=== PATIENT | male | born 1990 | race Caucasian/White ===

== ENCOUNTER 2018-06-21 07:13 | Emergency (ER) | payer MEDICAID, OTHER ==
[2018-06-21] MEDS ORDERED: ONDANSETRON 4 MG/2 ML VIAL ONE (07:39)
[2018-06-21] MEDS ORDERED: HYDROmorphONE/DILAUDID 1 MG/ML INJ ONE (07:39)
[2018-06-21] MEDS ORDERED: NS 1,000 ML IV ONE ×2 (07:41→07:50)
[2018-06-21] MEDS ORDERED: ONDANSETRON 4 MG/2 ML VIAL IVP ONE (07:41)
[2018-06-21] MEDS ORDERED: HYDROmorphONE/DILAUDID 1 MG/ML INJ IVP ONE (07:41)
[2018-06-21] MEDS ORDERED: KETOROLAC 30 MG/1 ML SDV IVP ONE (07:50)
[2018-06-21 07:51] LABS: PLATELET COUNT 374 10^3/uL (150-400)
--- NOTE | 2018-06-21 07:55 | EDPHY ---
H & P Stated Complaint: rlq abd pain radiates into groin started this morning Time Seen by Provider: 06/21/18 07:45 HPI/ROS: CHIEF COMPLAINT: Right inguinal pain radiating to testicles and hematuria HISTORY OF PRESENT ILLNESS: Patient is a 27-year-old man who woke up with severe sharp right inguinal pain radiating to his testicles. Also hematuria. No back pain. No fever. [place] well yesterday. This happened to him once before while he was driving to [place] but it seemed to resolve spontaneously and he did not get worked up. He states that 2 of his uncles have had kidney stones in the past. He also began vomiting this morning. He denies risk for STD. Severity: Severe but fluctuating Modifying factors: Spontaneously fluctuates REVIEW OF SYSTEMS: Constitutional: denies: chills, fever, recent illness, recent injury EENTM: denies: blurred vision, double vision, nose congestion Respiratory: denies: cough, shortness of breath Cardiac: denies: chest pain, irregular heart rate, lightheadedness, palpitations Gastrointestinal/Abdominal: denies: abdominal pain, diarrhea, nausea, vomiting, blood streaked stools Genitourinary: See HPI Musculoskeletal: denies: joint pain, muscle pain Skin: denies: lesions, rash, jaundice, bruising Neurological: denies: headache, numbness, paresthesia, tingling, dizziness, weakness Hematologic/Lymphatic: denies: blood clots, easy bleeding, easy bruising Immunologic/allergic: denies: HIV/AIDS, transplant 10 systems reviewed and negative except as noted EXAM: GENERAL: Diaphoretic, acute distress HEAD: Atraumatic, normocephalic. EYES: Pupils equal round and reactive to light, extraocular movements intact, sclera anicteric, conjunctiva are normal. ENT: TMs normal, nares patent, oropharynx clear without exudates. Moist mucous membranes. NECK: Normal range of motion, supple without lymphadenopathy or JVD. LUNGS: Breath sounds clear to auscultation bilaterally and equal. No wheezes rales or rhonchi. HEART: Regular rate and rhythm without murmurs, rubs or gallops. ABDOMEN: Soft, nontender, normoactive bowel sounds. No guarding, no rebound. No masses appreciated. : No testicular tenderness or swelling. No urethral discharge. BACK: No CVA tenderness, no spinal tenderness, step-offs or deformities EXTREMITIES: Normal range of motion, no pitting or edema. No clubbing or cyanosis. NEUROLOGICAL: Cranial nerves II through XII grossly intact. Normal speech, normal gait. 5/5 strength, normal movement in all extremities, normal sensation , normal reflexes PSYCH: Normal mood, normal affect. SKIN: Warm, dry, normal turgor, no visible rashes or lesions. Source: Patient Exam Limitations: No limitations - Personal History Current Tetanus Diphtheria and Acellular Pertussis (TDAP): Yes - Medical/Surgical History Hx Asthma: No Hx Chronic Respiratory Disease: No Hx Diabetes: No Hx Cardiac Disease: No Hx Renal Disease: No Hx Cirrhosis: No Hx Alcoholism: No Hx HIV/AIDS: No Hx Splenectomy or Spleen Trauma: No Other PMH: add - Family History Significant Family History: No pertinent family hx - Social History Smoking Status: Never smoked Alcohol Use: None Constitutional: Initial Vital Signs Temperature (C) 36.7 C 06/21/18 07:20 Heart Rate 65 06/21/18 07:20 Respiratory Rate 18 06/21/18 07:20 Blood Pressure 148/96 H 06/21/18 07:20 O2 Sat (%) 99 06/21/18 07:20 O2 Delivery Mode Room Air Allergies/Adverse Reactions: No Known Allergies Allergy (Verified 06/21/18 07:19) Home Medications: Medication Instructions Recorded Adderall 10 MG (RX) 09/07/15 Hydrocodone/APAP 5/325 [[place] 1 - 2 tab PO Q4H PRN #10 tab 06/21/18 5/325] Tamsulosin HCl [Flomax] 0.4 mg PO DAILY #10 cap 06/21/18 Medical Decision Making - Diagnostics Imaging Results: Imaging Impressions Abdomen/Pelvis CT 06/21/18 07:51 Impression: Obstructing 5 mm distal right ureteral stone with associated mild hydroureteronephrosis. Findings and recommendations discussed with AKI URENA at 0832 hour, 2018. Imaging: Discussed imaging studies w/ scallop cutter machine Radiologist ED Course/Re-evaluation: 8:30 p.m. the patient is currently asymptomatic. We discussed his CT results. He feels comfortable going home. We discussed follow-up with Urology in filter in his urine. Will prescribe pain medications and Flomax. Discussed indications for returning. Differential Diagnosis: Partial list of the Differential diagnosis considered include but were not limited to; kidney stone, urinary tract infection and although unlikely based on the history and physical exam, I also considered volvulus, ischemia, appendicitis, hernia, STD. I discussed these differential diagnoses and the plan with the patient as well as the usual and expected course. The patient understands that the diagnosis is provisional and that in medicine we are not always correct and that further workup is often warranted. Usual and customary warnings were given. All of the patient's questions were answered. The patient was instructed to return to the emergency department should the symptoms at all worsen or return, otherwise to followup with the physician as we discussed. - Data Points Laboratory Results: Laboratory Results 06/21/18 07:30 06/21/18 07:30 06/21/18 06/21/18 06/21/18 07:30 07:30 07:30 WBC RBC Hgb Hct MCV MCH MCHC RDW Plt Count MPV Neut % (Auto) Lymph % (Auto) [place] % (Auto) Eos % (Auto) Baso % (Auto) Nucleat RBC Rel Count Absolute Neuts (auto) Absolute Lymphs (auto) Absolute Monos (auto) Absolute Eos (auto) Absolute Basos (auto) Absolute Nucleated RBC Immature Gran % Immature Gran # Sodium 138 mEq/L mEq/L (135-145) Potassium 3.9 mEq/L mEq/L (3.5-5.2) Chloride 103 mEq/L mEq/L (97-110) Carbon Dioxide 26 mEq/l mEq/l (22-31) Anion Gap 9 mEq/L mEq/L (6-14) BUN 15 mg/dL mg/dL (7-23) Creatinine 1.0 mg/dL mg/dL (0.7-1.3) Estimated GFR > 60 Glucose 112 mg/dL H mg/dL (70-100) Calcium 9.2 mg/dL mg/dL (8.5-10.4) Total Bilirubin 0.4 mg/dL mg/dL (0.1-1.4) Conjugated Bilirubin 0.4 mg/dL mg/dL (0.0-0.5) Unconjugated Bilirubin 0.0 mg/dL mg/dL (0.0-1.1) AST 33 IU/L IU/L (17-59) ALT 44 IU/L IU/L (21-72) Alkaline Phosphatase 135 IU/L H IU/L (38-126) Total Protein 7.0 g/dL g/dL (6.3-8.2) Albumin 4.3 g/dL g/dL (3.5-5.0) Urine Color RED Urine Appearance TURBID Urine pH 6.5 (5.0-7.5) Ur Specific [place] >= 1.030 (1.002-1.030) Urine Protein TRACE H (NEGATIVE) Urine Ketones NEGATIVE (NEGATIVE) Urine Blood 3+ H (NEGATIVE) Urine Nitrate NEGATIVE (NEGATIVE) Urine Bilirubin NEGATIVE (NEGATIVE) Urine Urobilinogen 0.2 EU EU (0.2-1.0) Ur Leukocyte Esterase NEGATIVE (NEGATIVE) Urine RBC 50-182 /hpf H /hpf (0-3) Urine WBC 25-50 /hpf H /hpf (0-3) Ur Epithelial Cells NONE SEEN /lpf /lpf (NONE-1+) Granular Casts 5-15 /lpf /lpf (0-1) Urine Mucus 3+ /lpf H /lpf (NONE-1+) Urine Glucose NEGATIVE (NEGATIVE) 06/21/18 07:30 WBC 15.61 10^3/uL H 10^3/uL (3.80-9.50) RBC 5.20 10^6/uL 10^6/uL (4.40-6.38) Hgb 15.9 g/dL g/dL (13.7-17.5) Hct 47.4 % % (40.0-51.0) MCV 91.2 fL fL (81.5-99.8) MCH 30.6 pg pg (27.9-34.1) MCHC 33.5 g/dL g/dL (32.4-36.7) RDW 12.2 % % (11.5-15.2) Plt Count 374 10^3/uL 10^3/uL (150-400) MPV 8.5 fL L fL (8.7-11.7) Neut % (Auto) 64.1 % % (39.3-74.2) Lymph % (Auto) 22.5 % % (15.0-45.0) [place] % (Auto) 6.9 % % (4.5-13.0) Eos % (Auto) 5.1 % % (0.6-7.6) Baso % (Auto) 1.1 % % (0.3-1.7) Nucleat RBC Rel Count 0.0 % % (0.0-0.2) Absolute Neuts (auto) 10.00 10^3/uL H 10^3/uL (1.70-6.50) Absolute Lymphs (auto) 3.52 10^3/uL H 10^3/uL (1.00-3.00) Absolute Monos (auto) 1.08 10^3/uL H 10^3/uL (0.30-0.80) Absolute Eos (auto) 0.79 10^3/uL H 10^3/uL (0.03-0.40) Absolute Basos (auto) 0.17 10^3/uL H 10^3/uL (0.02-0.10) Absolute Nucleated RBC 0.00 10^3/uL 10^3/uL (0-0.01) Immature Gran % 0.3 % % (0.0-1.1) Immature Gran # 0.05 10^3/uL 10^3/uL (0.00-0.10) Sodium Potassium Chloride Carbon Dioxide Anion Gap BUN Creatinine Estimated GFR Glucose Calcium Total Bilirubin Conjugated Bilirubin Unconjugated Bilirubin AST ALT Alkaline Phosphatase Total Protein Albumin Urine Color Urine Appearance Urine pH Ur Specific [place] Urine Protein Urine Ketones Urine Blood Urine Nitrate Urine Bilirubin Urine Urobilinogen Ur Leukocyte Esterase Urine RBC Urine WBC Ur Epithelial Cells Granular Casts Urine Mucus Urine Glucose Medications Given: Discontinued Medications Hydromorphone HCl (Dilaudid) 1 mg IVP EDNOW ONE Stop: 06/21/18 07:42 Last Admin: 06/21/18 07:42 Dose: 1 mg Sodium Chloride (Ns) 1,000 mls @ 3,000 mls/hr IV ONCE ONE Stop: 06/21/18 08:00 Last Admin: 06/21/18 07:42 Dose: 1,000 mls Sodium Chloride (Ns) 1,000 mls @ 0 mls/hr IV EDNOW ONE; Wide Open PRN Reason: Protocol Stop: 06/21/18 07:51 Last Admin: 06/21/18 07:56 Dose: 1,000 mls Ketorolac Tromethamine (Toradol) 15 mg IVP EDNOW ONE Stop: 06/21/18 07:51 Last Admin: 06/21/18 07:57 Dose: 15 mg Ondansetron HCl (Zofran) 4 mg IVP EDNOW ONE Stop: 06/21/18 07:42 Last Admin: 06/21/18 07:42 Dose: 4 mg Tamsulosin HCl (Flomax) 0.4 mg PO EDNOW ONE Stop: 06/21/18 08:37 Last Admin: 06/21/18 08:41 Dose: 0.4 mg Departure - Departure Disposition: Home, Routine, Self-Care Clinical Impression: Kidney stone on right side Condition: Fair Instructions: Kidney Stones (ED) Additional Instructions: You may take ibuprofen 600 mg every 8 hr for pain control. Add the prescription pain killer as needed. Referrals: Monty Davidson MD [Primary Care Provider] - As per Instructions Juan Antonio Claire MD [Medical Doctor] - 5-7 days, call for appt. Prescriptions: Hydrocodone/APAP 5/325 [[place] 5/325] 1 - 2 tab PO Q4H PRN #10 tab PRN Reason: Pain, Moderate Tamsulosin HCl [Flomax] 0.4 mg PO DAILY #10 cap
[2018-06-21] MEDS ORDERED: TAMSULOSIN HCL 0.4 MG CAP PO ONE (08:36)
[2018-06-21 08:41] VITALS: BP 128/91
== END 2018-06-21 08:56 | disposition home or self-care (01) ==
DX: N13.2 Hydronephrosis with renal and ureteral calculous obstruction (principal); E86.9 Volume depletion, unspecified
CPT/HCPCS: 96374; J1170; J1885; J2405